=== PATIENT | female | born 2000 | race Caucasian/White ===

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

== ENCOUNTER 2020-10-05 23:58 | Emergency (ER) | payer OTHER, SELFPAY ==
[2020-10-05 23:59] VITALS: BP 107/78; PULSE 90; RESP 16; TEMP 36.6; O2SAT 97; BMI 29.3
--- NOTE | 2020-10-06 00:06 | EX.ED.DYSGE1 ---
HPI History of Present Illness Chief Complaint: Flank Pain Informant: patient Onset/Context/Timing Onset: Days Context: Gradual Onset Timing: Intermittent Current Severity: Moderate Maximum Severity: Moderate Narrative Narrative: The patient is a 20-year-old female presents to the emergency department flank pain and dysuria. The patient states that she was seen at an emergency department yesterday lab work and a CT. She does not think that they found stones. She states that since then, she has been persistently nauseated and having intermittent pain. She denies weight loss or night sweats. She is not sure that she has had fever. She thinks that she has had some chills. She has been compliant with her antibiotics, Bactrim. Prior similar symptoms: No Recent Illness/Hospitalization: No PFSH PFSH Medical History (Updated 10/06/20 @ 01:[address] Taurus Carter MD) PCOS (polycystic ovarian syndrome) no medical history Home Medications vit,[id number] [Prenatabs FA] 1 tab PO DAILY 08/02/17 [History Last Taken 11/21/17 08:00 1 tab] ciprofloxacin HCl 500 mg PO BID #14 tablet 10/06/20 [Rx Last Taken Unknown] hydrocodone-acetaminophen 1 tab PO Q6H PRN PRN 3 Days #10 tablet 10/06/20 [Rx Last Taken Unknown] Allergy/AdvReac Type Severity Reaction Status Date / Time No Known Allergies Allergy Verified 10/05/20 23:59 Social History Smoking Status: Never smoker ROS ROS ED Constitutional Constitutional ED: Denies chills or fever(s) Eyes Eyes: Denies blurry vision or change in vision ENT ENT ED: Denies ear pain or sore throat Cardiovascular Cardiovascular: Denies chest pain or palpitations Respiratory/Chest Respiratory/Chest: Denies cough, dyspnea or dyspnea on exertion Gastrointestinal Gastrointestinal: Reports nausea; Denies abdominal pain or vomiting Genitourinary Genitourinary ED: Reports dysuria; Denies urinary frequency Musculoskeletal Musculoskeletal: Reports back pain; Denies arthralgias or myalgias Integumentary Denies rash Neurologic Neurologic: Denies headache(s) or paresthesias Psychiatric Psychiatric: Denies anxiety or depression Endocrine Endocrinology: Denies polydipsia or polyuria Allergic/Immunologic Allergic/Immunologic ED: Denies urticaria EXAM Physical Exam Const Vital Signs: 10/05/20 23:59 Temperature 97.8 F Temperature Source Temporal Pulse Rate 90 Respiratory Rate 16 Blood Pressure 107/78 Blood Pressure Mean 87 Pulse Ox 97 Oxygen Delivery Method Room Air Positive well nourished and well developed General Appearance ED: well developed HEENT Reports normocephalic, head/scalp atraumatic and moist mucous membranes Eyes PERRL and EOMs intact bilaterally Neck no lymphadenopathy and supple General: Negative for tenderness Chest Wall inspection of chest normal Resp normal respiratory effort and clear to auscultation bilaterally Cardio regular rate, regular rhythm and no murmurs GI normal to inspection, nondistended, normoactive bowel sounds Palpation: Negative for tender, guarding or rebound tenderness present Back/Spine no CVA tenderness Cervical Spine: Negative for cervical spine tenderness Thoracic Spine / Upper Back: Negative for thoracic spinal tenderness Extremity normal to inspection General Extremety ED: Negative for tenderness Neuro oriented x3 and CN's II-XII intact bilaterally Neuro Narrative: No focal deficits appreciated. Sensorium / Orientation: alert Psych mental status grossly normal Skin no rashes or lesions noted, no wounds and skin turgor normal MDM MDM MDM Narrative Medical decision making narrative: Patient presents with flank pain and persistent dysuria. She has been on Bactrim for 3 days now. I was able to review her records from [facility]. She did have a CT at that time which was unremarkable. Labs were obtained. White count is normal. The patient is not tachycardic, hypotensive, or febrile. Her urine still shows evidence of infection. I will give her dose of IV Rocephin. I am going to change her antibiotics to Cipro pending results of this culture. She also given a short course of analgesics for pain control. I do feel the patient is stable for outpatient management. She is comfortable with this plan of care. She is now resting pain-free. Impression 1. Partially treated pyelonephritis Lab Data Attestation: I reviewed the patient's lab results. Labs: Laboratory Results - last 24 hr 10/06/20 10/06/20 10/06/20 00:35 00:35 00:35 WBC 8.6 RBC 4.72 Hgb 13.1 Hct 39.8 MCV 84.3 MCH 27.8 MCHC 32.9 RDW Std Deviation 40.4 RDW Coeff of Kenny 13.1 Plt Count 273 MPV 11.0 Immature Gran % (Auto) 0.200 Neut % (Auto) 61.2 Lymph % (Auto) 27.7 [place] % (Auto) 8.0 Eos % (Auto) 2.4 Baso % (Auto) 0.5 Absolute Neuts (auto) 5.3 Absolute Lymphs (auto) 2.39 Nucleated RBC % 0 Sodium 137 Potassium 3.7 Chloride 105 Carbon Dioxide 29.0 Anion Gap 3 L BUN 13 Creatinine 0.87 Estim Creat Clear Calc 87.59 Est GFR (MDRD) Af Amer 105 Est GFR (MDRD) Non-Af 87 BUN/Creatinine Ratio 14.9 Glucose 96 Calcium 9.3 Urine Color Yellow Urine Clarity Sl. Cloudy Urine pH 8.0 Ur Specific [place] 1.015 Urine Protein 15 H Urine Glucose (UA) Normal Urine Ketones Negative Urine Occult Blood 25 H Urine Nitrite Negative Urine Bilirubin Negative Urine Urobilinogen 1 H Ur Leukocyte Esterase 500 H Urine RBC 0-5 SEEN Urine WBC 0-5 SEEN Ur Squamous Epith Cells 0-5 SEEN Amorphous Sediment 2+ Urine Bacteria 1+ Fine Granular Casts 0-5 SEEN Urine Mucus 0 SEEN Urine Test 10/06/20 00:35 WBC RBC Hgb Hct MCV MCH MCHC RDW Std Deviation RDW Coeff of Kenny Plt Count MPV Immature Gran % (Auto) Neut % (Auto) Lymph % (Auto) [place] % (Auto) Eos % (Auto) Baso % (Auto) Absolute Neuts (auto) Absolute Lymphs (auto) Nucleated RBC % Sodium Potassium Chloride Carbon Dioxide Anion Gap BUN Creatinine Estim Creat Clear Calc Est GFR (MDRD) Af Amer Est GFR (MDRD) Non-Af BUN/Creatinine Ratio Glucose Calcium Urine Color Urine Clarity Urine pH Ur Specific [place] Urine Protein Urine Glucose (UA) Urine Ketones Urine Occult Blood Urine Nitrite Urine Bilirubin Urine Urobilinogen Ur Leukocyte Esterase Urine RBC Urine WBC Ur Squamous Epith Cells Amorphous Sediment Urine Bacteria Fine Granular Casts Urine Mucus Urine Test Negative Discharge Plan Triage Chief Complaint: Flank Pain ED Provider: Taurus Carter Dx/Rx/DC Orders Clinical Impression: Pyelonephritis Instructions: ED Pyelonephritis, Female (Adult) Prescriptions: New hydrocodone-acetaminophen [hydrocodone-acetaminophen] 1 TABLET tablet 1 tab PO Q6H PRN PRN (Reason: Pain) 3 Days Qty: 10 RF: 0 ciprofloxacin HCl [ciprofloxacin HCl] 500 MG tablet 500 mg PO BID Qty: 14 RF: 0 No Action vit,[id number] [Prenatabs FA] 1 TABLET tablet 1 tab PO DAILY RF: 0 Primary Care Provider: Cash Kelly Referrals: Cash Kelly MD [Primary Care Provider] -
[2020-10-06] MEDS: Ketorolac 15 MG/ML Vial IV (00:34)
[2020-10-06] MEDS: Ondansetron 4 MG/2 ML Vial IV (00:34)
[2020-10-06] MEDS: 0.9% Normal Saline 1,000 ML 250 ML IV (00:35)
[2020-10-06 00:41] LABS: Mucous, Urine 0 SEEN /hpf (<or=2+)
[2020-10-06 00:42] LABS: Absolute Lymphocyte Count 2.39 X10^3/uL (0.83-4.51); Absolute Neutrophil Count 5.3 X10^3/uL (2.0-7.7); Basophil# 0.04 X10^3/uL; Basophil% 0.5 % (0-1); Eosinophil# 0.21 X10^3/uL; Eosinophils% 2.4 % (0-5); Hematocrit 39.8 % (37-47); Hemoglobin 13.1 g/dL (12.0-15.0); Lymphocyte # 2.39 X10^3/ul (0.83-4.51); Lymphocyte % 27.7 % (19-41); Mean Corp Hgb Conc 32.9 g/dL (32-36); Mean Corpuscular Hgb 27.8 pg (27.0-32.0); Mean Corpuscular Volume 84.3 fL (81-99); Monocyte# 0.69 X10^3/uL; NRBC Flagged by Analyzer 0 % (0-5); Neutrophil # 5.29 X10^3/uL (2.7-7.7); Neutrophil % 61.2 % (47-70); Platelet Count 273 K/mm3 (150-450); RBC Distribution Width CV 13.1 % (11.6-14.6); RBC Distribution Width SD 40.4 fl (35.1-43.9); Red Blood Count 4.72 M/mm3 (4.2-5.4); White Blood Count 8.6 K/mm3 (4.4-11.0)
[2020-10-06 00:43] LABS: Color, Urine Yellow (Yellow); Glucose, Dipstick Normal (Normal); Ketone-Dipstick Negative (Negative); Leukocyte Esterase-Dipstick 500 /ul (Negative); Nitrite-Dipstick Negative (Negative); Occult Blood-Urine 25 /ul (Negative); Protein-Dipstick 15 mg/dl (Negative); Specific Gravity, Urine 1.015 (1.002-1.030); Urine Bilirubin Dipstick Negative (Negative); Urine Clarity Sl. Cloudy (Clear); Urine Urobilinogen 1 mg/dl (Normal)
[2020-10-06 00:45] LABS: Internal QC Validated? YES +Cl - CLEAR BKGD; Pregnancy, Urine Negative Negative
[2020-10-06 00:54] LABS: Amorphous Sediment 2+; Bacteria 1+ /hpf (None Seen)
[2020-10-06 00:55] LABS: Anion Gap 3 (5-15); BUN 13 mg/dL (7-18); BUN/Creat Ratio 14.9 RATIO (10-20); Calcium,Total 9.3 mg/dL (8.5-10.1); Chloride 105 mmol/L (98-107); Creatinine, Serum 0.87 mg/dL (0.55-1.02); EST Glomerular Filtration Rate 87 mL/min (>60); Est Glom Filt Rate - Afr Amer 105 mL/min (>60); Estimated Creatinine Clearance 87.59 ml/min; Fine Granular Cast- Urine 0-5 SEEN /lpf (0-5); Glucose 96 mg/dL (74-106); Potassium 3.7 mmol/L (3.5-5.1); Red Blood Cells-Urine 0-5 SEEN /hpf (0-5); Sodium Level 137 mmol/L (136-145); Squamous Epithelial Cells - UA 0-5 SEEN /hpf (5-10); White Blood Cells 0-5 SEEN /hpf (0-5)
[2020-10-06] MEDS: Ceftriaxone 1 GM/50 ML BAG IV (01:19)
== END 2020-10-06 02:26 | disposition home or self-care (01) ==
PROVIDERS: Emergency Provider Emergency Medicine; PCP Family Medicine
DX: N12 Tubulo-interstitial nephritis, not specified as acute or chronic (principal)
CPT/HCPCS: 80048; 81001; 81025; 85025; 87086; 87088; 96361; 96365; 96375; 99283; J7030; A4216; J2405